=== PATIENT | female | born 1945 | race Caucasian/White ===

== ENCOUNTER → 2016-07-10 | Outpatient (CLI) | payer BC, OTHER ==
[~2016-07-10] MED LIST: ASPIRIN81 M2 PO; ESTER-C 500 MG1 EACH PO; ESTRADIOL1 EAC3 TD; FLEXERIL PO; HYDROCODON-ACE1 EAC1 PO; HYDROCODONE-APA1 TA1 PO; K-DUR10 MEQ PO; LASIX 40 MG TAB40 M2 PO; LIDODERM 5%1 PATC1 TRANSDERM; LISINOPRIL10 MG PO; LOPERAMIDE 2 MG2 M1 PO; METOPROLOL SUCC50 MG PO; MOBIC15 MG PO; NAPROSYN500 MG PO; NORCO 10-325 T1 EACH PO; VITAMIN B-12500 MCG PO; VITAMIN D-32000 UNIT PO; VITAMIN E400 UNIT PO; blood pressure med PO
== END ==
LOC: RAD 12:12
DX: M54.5 Low back pain (principal); Z98.890 Other specified postprocedural states

== ENCOUNTER → 2021-01-13 | Outpatient (CLI) | payer BC ==
[2021-01-13 11:13] LABS: CREATININE 0.9 mg/dL (0.6-1.0)
[2021-01-13 12:33] LABS: INR 0.98; PROTIME 10.7 Seconds (10.5-12.1)
--- NOTE | 2021-01-13 16:31 | NUR ---
LATE ENTRY. PT DISCHARGED AT 1445 PER WHEELCHAIR BY VOLUNTEER. PT TOLERATED MYELOGRAM WELL. DC'D WITH CLEAN DRY BANDAID TO BACK. VERBALIZES UNDERSTANDING OF MYELOGRAM DC INST. VSS. HR 72; BP 144/79; RESP 20; SAT 95%. IV DC'D PRIOR TO DC
== END | disposition home or self-care (01) ==
LOC: RAD 12-27 14:18
PROVIDERS: Radiology Diagnostic Radiology; ATTEND Neurological Surgery
DX: M51.36 Other intervertebral disc degeneration, lumbar region (principal); M48.061 Spinal stenosis, lumbar region without neurogenic claudication; M43.16 Spondylolisthesis, lumbar region; M25.78 Osteophyte, vertebrae; Z98.890 Other specified postprocedural states; Z79.899 Other long term (current) drug therapy; Z88.8 Allergy status to other drugs, medicaments and biological substances